=== PATIENT | female | born 1995 | race Caucasian/White ===

== ENCOUNTER 2019-07-04 14:14 | Inpatient (IN) | payer MEDICAID ==
[~2019-07-04] VITALS: Ht 170.2 cm; Wt 132.9 kg
[2019-07-04 14:18] VITALS: BP 142/81
--- NOTE | 2019-07-04 14:21 | NUR ---
PT AMBULATED TO ER BED 11
--- NOTE | 2019-07-04 14:28 | NUR ---
24 Y/O F PRESENTS TO ER C/O SHORTNESS OF BREATH AND STERNAL PAIN TO SCAR FROM PRIOR HEART SURGERY IN AUGUST 2016 THAT RADIATES TO RIGHT NECK X1 WEEK. PT REPORTS BEING FATIGUE AND DIZZY. PT RESPIRATIONS ARE EVEN AND UNLABORED. O2 SATURATION 100% ON RA. PT PAIN LEVEL 8/10. REDNESS NOTED AROUND SURGICAL SITE AND PER PT AREA IS TENDER TO TOUCH. PT AWAKE AND ALERT. HOB ELEVATED TO HIGH FOWLERS POSITION, BED IN LOWEST POSITION, BED RAIL UP X1. ERMD AT BEDSIDE. ALLERGIES: NKA MED HX: GALLBLADDER REMOVAL, HERNIA REPAIR, OPEN HEART SURGERY AUGUST 2016.
--- NOTE | 2019-07-04 14:40 | NUR ---
Pt ambulated to restroom to provide urine sample
--- NOTE | 2019-07-04 14:56 | NUR ---
Xray at bedside
--- NOTE | 2019-07-04 15:19 | NUR ---
Blood collected and given to phebessyb
[2019-07-04] MEDS ORDERED: MORPHINE SULFATE 4 MG/ML SYR IVP ONE (15:25)
[2019-07-04] MEDS ORDERED: ASPIRIN 325 MG TAB PO ONE (15:25)
[2019-07-04] MEDS ORDERED: NITROGLYCERIN 2% 1 GM PKT TP ONE (15:25)
[2019-07-04 15:31] LABS: APPEARANCE,URINE CLOUDY (CLEAR); BILIRUBIN,URINE NEGATIVE (NEGATIVE); BLOOD, URINE NEGATIVE (NEGATIVE); COLOR,URINE YELLOW (YELLOW); LEUKOCYTE ESTERASE ,URINE NEGATIVE (NEGATIVE); NITRITE, URINE NEGATIVE (NEGATIVE); PH,URINE 5.5 (5.0-9.0); UGLUCOSE NEGATIVE (NEGATIVE)
[2019-07-04 15:34] LABS: BASOPHILS # (AUTO) 0.1 K/uL (0.00-0.22); BASOPHILS % (AUTO) 0.4 % (0.0-2.0); EOSINOPHILS # (AUTO) 0.1 K/uL (0-0.4); EOSINOPHILS % (AUTO) 0.5 % (0.0-4.0); HEMATOCRIT 38.2 % (36-48); HEMOGLOBIN 12.5 g/dL (12.0-16.0); LYMPHOCYTES # (AUTO) 2.6 K/uL (2.5-16.5); LYMPHOCYTES % (AUTO) 20.6 % (20.5-51.1); MEAN CORPUSCULAR HEMOGLOBIN 26 pg (27-31); MEAN CORPUSCULAR HGB CONC 33 g/dL (33-37); MEAN CORPUSCULAR VOLUME 80.1 fL (80-94); MONOCYTES # (AUTO) 0.5 K/uL (0.8-1.0); MONOCYTES % (AUTO) 3.8 % (1.7-9.3); NEUTROPHILS # (AUTO) 9.6 K/uL (1.8-7.7); NEUTROPHILS % (AUTO) 74.7 % (42.2-75.2); PLATELET COUNT (AUTO) 333 K/uL (140-450); RED BLOOD CELL COUNT(AUTO) 4.78 MIL/uL (4.20-5.40); RED CELL DISTRIBUTION WIDTH 14.8 % (11.6-13.7); WHITE BLOOD COUNT (AUTO) 12.8 K/uL (4.8-10.8)
[2019-07-04 15:47] LABS: RBC,URINE 0-5 /HPF (0-5); WBC,URINE 0-5 /HPF (0-5)
[2019-07-04 15:53] LABS: ALBUMIN 3.6 g/dL (3.4-5.0); ANION GAP 9.3 (8-16); CARBON DIOXIDE 30.5 mmol/L (21-32); CREATININE 0.8 mg/dL (0.6-1.3); POTASSIUM 3.8 mmol/L (3.5-5.1); TOTAL BILIRUBIN 0.2 mg/dL (0.0-1.0)
[2019-07-04 16:00] LABS: CREATINE KINASE MB 0.6 ng/mL (0-3.6)
--- NOTE | 2019-07-04 17:00 | NUR ---
Pt resting in bed with family at bedside. Vital Signs Stable. Will continue to monitor.
[2019-07-04] MEDS ORDERED: ABI10 PO (17:19)
[2019-07-04] MEDS ORDERED: CARV3.122 PO (17:19)
[2019-07-04] MEDS ORDERED: ISOS20TA13 PO ×2 (17:19→21:19)
[2019-07-04] MEDS ORDERED: FURO-572 PO (17:19)
--- NOTE | 2019-07-04 17:35 | NUR ---
Pt updated on plan of care. All questions addressed.
[2019-07-04] MEDS ORDERED: NACL 0.9% 1,000 ML IV SCH (18:36)
[2019-07-04] MEDS ORDERED: LORazepam 2 MG/ML VIAL IM/IVP PRN (18:40)
[2019-07-04] MEDS ORDERED: ONDANSETRON 4 MG/2 ML VIAL IM/IVP PRN (18:40)
[2019-07-04] MEDS ORDERED: ZOLPIDEM 5 MG TAB PO PRN (18:40)
[2019-07-04] MEDS ORDERED: ACETAMINOPHEN 325 MG TAB PO PRN (18:40)
[2019-07-04] MEDS ORDERED: DOCUSATE SODIUM 100 MG GELCAP PO PRN (18:40)
--- NOTE | 2019-07-04 18:41 | NUR ---
Pt c/o 910 chest pain to right sided sternum. Does not radiate. Dr. Lord made aware.
[2019-07-04] MEDS ORDERED: NITROGLYCERIN 0.4 MG TAB SL PRN (18:45)
--- NOTE | 2019-07-04 19:01 | NUR ---
Transfer of care and report given to PETRONA Brady
--- NOTE | 2019-07-04 19:10 | NUR ---
RECEIVED REPORT FROM VICENTE RUSS.
--- NOTE | 2019-07-04 19:15 | NUR ---
PT C/O 9/10 SHARP CP ON LEFT SIDE. UNABLE TO RECEIVE MORPHINE DUE TO ORDER TIMING. GAVE NORCO. STARTED MAINTENANCE IVF 40ML/HR. WILL CONTINUE TO MONITOR.
[2019-07-04] MEDS: HYDROcodone/APAP 5/325 MG 1 TAB TAB PO PRN (19:23)
--- NOTE | 2019-07-04 19:30 | NUR ---
CALLED RESIDENT TO DISCUSS MAINTENANCE FLUIDS WITH PT'S HX OF DIASTOLIC HR. PT CURRENTLY HAS NO SIGNS OF FLUID OVERLOAD; NO PERIPHERAL EDEMA; LUNG SOUNDS CLEAR. PT DOES C/O SOB WITH THE CP AND JUST ATE MCDONALDS AT THE BEDSIDE. EDUCATED PT ON LOW SALT DIET. STOPPED IVF PER RESIDENT. RECEIVED VERBAL ORDER FROM RESIDENT TO GIVE SL NITRO TABLET FOR CP. VSS. WILL CONTINUE TO MONITOR.
[2019-07-04 19:31] LABS: MAGNESIUM 2.2 mg/dL (1.8-2.4); PHOSPHORUS 3.3 mg/dL (2.5-4.9); THYROID STIMULATING HORMONE 2.25 uIU/mL (0.34-3.74)
[2019-07-04 19:38] LABS: BARBITURATE, URINE NEGATIVE ng/ml (NEG <=200); BENZODIAZEPINE, URINE NEGATIVE ng/mL (NEG <=200); CANNABINOID, URINE NEGATIVE ng/mL (NEG <=50); COCAINE, URINE NEGATIVE ng/mL (NEG <=300); OPIATE, URINE NEGATIVE ng/mL (NEG <=2000); PHENCYCLIDINE SCREEN,URINE NEGATIVE ng/mL (NEG <=25)
[2019-07-04 19:47] LABS: PROTHROMBIN TIME 9.3 secs (10.8-13.4)
--- NOTE | 2019-07-04 20:05 | NUR ---
Dr. Pratt examining patient
--- NOTE | 2019-07-04 20:10 | NUR ---
RESIDENT IN ROOM ASSESSING PT.
--- NOTE | 2019-07-04 20:34 | NUR ---
Patient will be admitted to care of [facility]. Admited to TELEMETRY. Will go to room 119B. Belongings list completed. Report to LOLITA RUSS.
--- NOTE | 2019-07-04 20:35 | NUR ---
ADMITTED THIS 24 YEAR OLD FEMALE FROM ER PER CURT WITH CC OF SOB AND CHEST PAIN, AMBULATED TO BED WTH STEADY GAIT, ASSESSMENT DONE, VITAL SIGNS TAKEN, SBP IS NORMAL BUT DBP ON THE LOW SIDE, COMPLAINING OF CHEST PAIN 8/10 AT THIS, NO SOB NOTED, WILL MEDICATE PRN, PLAN OF CARE DISCUSSED, SAFETY MEASURES IN PLACE, CALL LIGHT WITHIN REACH.
[2019-07-04 20:40] VITALS: BP 112/48
--- NOTE | 2019-07-04 21:00 | NUR ---
PT COMPLAINING OF CHEST PAIN 12/05 AND REQUESTING FOR MORPHINE SINCE NORCO GIVEN EARLIER IN ER IS NOT RELIEVING THE PAIN, NO SOB NOTED, BP RECHECKED-114/39, HR-106, DR LOU MADE AWARE, STATED DBP IS TOO LOW TO GIVE MORPHINE, WILL ORDER TORADOL IVP AND REASSESS AFTER 30 MINUTES, AND STATED ALSO TO REMOVE NITROPASTE, WILL CARRY OUT.
[2019-07-04] MEDS ORDERED: KETOROLAC 30 MG/ML VIAL IVP SCH (21:05)
[2019-07-04] MEDS: MORPHINE SULFATE 2 MG/ML SYR IVP PRN (21:56)
--- NOTE | 2019-07-04 21:56 | NUR ---
NO RELIEF FROM TORADOL, BP RECHECKED-122/54, HR-98, DR LOU MADE AWARE, STATED OK TO GIVE MORPHINE, MORPHINE IVP ADMINISTERED, MONITORED CLOSELY.
[2019-07-04] MEDS ORDERED: cefTRIAXone 1,000 MG VIAL ONE (23:10)
[2019-07-05] VITALS: BP 117/61
--- NOTE | 2019-07-05 | NUR ---
PT SLEEPING, EASILY AROUSABLE, VITAL SIGNS STABLE, DENIES PAIN, NO SOB NOTED, IVF INFUSING WELL, CONTINUE TO MONITOR CLOSELY.
[2019-07-05] MEDS ORDERED: ISOS20TA13 PO (00:24)
[2019-07-05] MEDS: MORPHINE SULFATE 2 MG/ML SYR IVP PRN ×3 (02:15→16:37)
--- NOTE | 2019-07-05 02:15 | NUR ---
PT COMPLAINING OF CHEST PAIN, NO SOB NOTED, MEDICATED WITH MORPHINE IVP ORDERED, MONITORED CLOSELY.
[2019-07-05 04:30] VITALS: BP 112/65
--- NOTE | 2019-07-05 04:30 | NUR ---
PT AWAKE USING HER CELLPHONE, VITAL SIGNS STABLE, DENIES PAIN AT THIS TIME, NO SOB NOTED, IVF INFUSING WELL, MONITORED CLOSELY.
--- NOTE | 2019-07-05 06:00 | NUR ---
SEEN PT SLEEPING, VISIBLE CHEST RISE AND FALL, NO DISTRESS NOTED, IVF INFUSING WELL, MONITORED CLOSELY.
[2019-07-05 06:22] LABS: BASOPHILS # (AUTO) 0.1 K/uL (0.00-0.22); BASOPHILS % (AUTO) 0.8 % (0.0-2.0); EOSINOPHILS # (AUTO) 0.1 K/uL (0-0.4); EOSINOPHILS % (AUTO) 1.3 % (0.0-4.0); HEMATOCRIT 36.6 % (36-48); HEMOGLOBIN 12.1 g/dL (12.0-16.0); LYMPHOCYTES # (AUTO) 2.7 K/uL (2.5-16.5); LYMPHOCYTES % (AUTO) 33.5 % (20.5-51.1); MEAN CORPUSCULAR HEMOGLOBIN 27 pg (27-31); MEAN CORPUSCULAR HGB CONC 33 g/dL (33-37); MEAN CORPUSCULAR VOLUME 80.4 fL (80-94); MONOCYTES # (AUTO) 0.3 K/uL (0.8-1.0); NEUTROPHILS # (AUTO) 4.9 K/uL (1.8-7.7); NEUTROPHILS % (AUTO) 60.4 % (42.2-75.2); PLATELET COUNT (AUTO) 268 K/uL (140-450); RED BLOOD CELL COUNT(AUTO) 4.55 MIL/uL (4.20-5.40); RED CELL DISTRIBUTION WIDTH 14.7 % (11.6-13.7); WHITE BLOOD COUNT (AUTO) 8.1 K/uL (4.8-10.8)
[2019-07-05 06:57] LABS: ANION GAP 11.8 (8-16); CARBON DIOXIDE 26.4 mmol/L (21-32); CREATININE 0.8 mg/dL (0.6-1.3); POTASSIUM 4.2 mmol/L (3.5-5.1)
--- NOTE | 2019-07-05 07:20 | NUR ---
RECEIVED REPORT FROM COMMUNICATIONS PROJECT MANAGER NURSE. PT IS SLEEPING, NO SIGNS OF DISTRESS. PT HAS IV ON LEFT AC G20 WITH NS RUNNING AT 20 ML/HR. ON ROOM AIR. PT IS FROM HOME, FULL CODE. NKA. CALL LIGHT WITHIN PT'S REACH, BED ON LOW, SIDE RAILS UP. WILL CONTINUE TO MONITOR
--- NOTE | 2019-07-05 07:34 | NUR ---
PT SLEEPING, NO SIGNS OF DISTRESS, REPORT GIVEN TO PETRONA THURMAN FOR CONTINUITY OF CARE.
[2019-07-05 08:00] VITALS: BP 114/69
--- NOTE | 2019-07-05 08:39 | NUR ---
MORNING MEDS GIVEN. PT TOLERATED WELL. PT COMPLAINED OF PAIN. MORPHINE GIVEN IVP. WILL CONTINUE TO MONITOR
[2019-07-05] MEDS ORDERED: ARIPiprazole 10 MG TAB PO SCH (09:00)
[2019-07-05] MEDS ORDERED: ISOSORBIDE DINITRATE 20 MG TAB PO SCH (09:00)
[2019-07-05] MEDS ORDERED: ISOSORBIDE DINITRATE 10 MG TAB PO SCH (09:00)
[2019-07-05] MEDS ORDERED: CARVEDILOL 3.125 MG TAB PO SCH (09:00)
[2019-07-05] MEDS ORDERED: LISINOPRIL 5 MG TAB PO SCH (09:00)
[2019-07-05] MEDS ORDERED: LACTOBACILLUS RHAMNOSUS GG 1 EACH CAP PO SCH (09:00)
[2019-07-05] MEDS ORDERED: FUROSEMIDE 20 MG TAB PO SCH (09:00)
--- NOTE | 2019-07-05 09:00 | NUR ---
PATIENT HAS BEEN SCREENED AND CATEGORIZED MODERATE NUTRITION RISK. PATIENT WILL BE SEEN WITHIN 3-5 DAYS OF ADMISSION. 07/07/19 07/09/[address]
[2019-07-05 12:00] VITALS: BP 120/67
[2019-07-05] MEDS: HYDROcodone/APAP 5/325 MG 1 TAB TAB PO PRN (13:35)
--- NOTE | 2019-07-05 13:35 | NUR ---
PT COMPLAINED OF PAIN ON THE CHEST 10/05. NORCO GIVEN. PT TOLEARTED WELL. WILL CONTINUE TO MONITOR
[2019-07-05] MEDS ORDERED: LACT10CA1 PO ×2 (13:54→14:24)
[2019-07-05] MEDS ORDERED: LEVO750T2 PO ×2 (13:54→14:24)
[2019-07-05 16:00] VITALS: BP 121/74
--- NOTE | 2019-07-05 16:37 | NUR ---
PT COMPLAINED OF PAIN 12/05. MORPHINE GIVEN IVP. PT TOLERATED WELL.
[2019-07-05 17:45] VITALS: BP 121/74
--- NOTE | 2019-07-05 18:00 | NUR ---
DC INSTRUCTIONS GIVEN TO THE PT. PT VERBALIZED UNDERSTANDING. PT SIGNED DC PAPERS
--- NOTE | 2019-07-05 18:10 | NUR ---
REMOVED ID BANDS AND IV, IV CANNULA INTACT. TELE MONITOR REMOVED
--- NOTE | 2019-07-05 18:19 | NUR ---
PT WHEELED OUT TO THE LOBBY AND ACCOMPANIED BY FAMILY. PT IS STABLE.
== END 2019-07-05 20:24 | disposition home or self-care (01) | DRG 198 ==
LOC: MED 14:14 → MTU 17:59
PROVIDERS: ADMIT General Practice; ATTEND General Practice
DX: I20.9 Angina pectoris, unspecified (principal); I50.42 Chronic combined systolic (congestive) and diastolic (congestive) heart failure; R65.10 Systemic inflammatory response syndrome (SIRS) of non-infectious origin without acute organ dysfunction; F25.0 Schizoaffective disorder, bipolar type; Z68.42 Body mass index [BMI] 45.0-49.9, adult; M94.0 Chondrocostal junction syndrome [Tietze]; N39.0 Urinary tract infection, site not specified; E66.9 Obesity, unspecified; F12.90 Cannabis use, unspecified, uncomplicated; F43.9 Reaction to severe stress, unspecified; Z95.1 Presence of aortocoronary bypass graft; Z79.899 Other long term (current) drug therapy; Z90.49 Acquired absence of other specified parts of digestive tract; Z91.14 Patient's other noncompliance with medication regimen; Z71.51 Drug abuse counseling and surveillance of drug abuser
CPT/HCPCS: 36415; 71045; 80048; 80053; 80305; 81001; 81025; 82550; 82553; 83036; 83690; 83735; 83880; 84100; 84443; 84484; 85025; 85379; 85610; 85730; 87081; 87086; 93005; 93970; 96374; 99291; J0696; J1644; J1885; J2270; J7030; J7060; Q0092

== ENCOUNTER 2019-09-01 12:27 | Emergency (ER) | payer MEDICAID ==
[~2019-09-01] VITALS: Ht 170.2 cm; Wt 127.0 kg
[~2019-09-01 12:27] MED LIST: ABI10 PO; CARV3.122 PO; FURO-572 PO; ISOS20TA13 PO; LACT10CA1 PO; LEVO750T2 PO
--- NOTE | 2019-09-01 12:28 | NUR ---
Patient transferred to bed 4 via wheelchair by triage nurse. RN evaluating patient at bedside.
--- NOTE | 2019-09-01 12:33 | NUR ---
EKG completed at bedside by EMT.
[2019-09-01 12:34] VITALS: BP 114/63
--- NOTE | 2019-09-01 12:47 | NUR ---
24 Y/O F C/C CHEST PAIN/SOB X 1 DAY. PER PT 11/04 PAIN IN LEFT UPPER CHEST, NON RADIATING, TIGHTNESS SENSATION, MOVING MAKES IT WORSE. PT HAS NOT TAKEN OTC RX FOR PAIN RELIEF. PT PRESENT IN NO RESP DISTRESS, 98% RA, SYMMETRICAL BREATHING PATTERN, EUPNEA. PLACED ON 2L NC FOR COMFORT. PT NKA. HX CHRONIC DIASTOLIC DISEASE,GALLBLADDER/HERNIA SURGERIES. NO N/V/D. SIDE RAIL X1.
--- NOTE | 2019-09-01 13:01 | NUR ---
IZAELLIOTTFRANCIS - MOTHER PHONE : [phone] CELL
--- NOTE | 2019-09-01 13:04 | NUR ---
PT AMBULTED TO BATHROOM, STEADY GAIT.
--- NOTE | 2019-09-01 13:13 | NUR ---
DR VARELA AT BEDSIDE
[2019-09-01 13:19] LABS: BASOPHILS # (AUTO) 0.1 K/uL (0.00-0.22); BASOPHILS % (AUTO) 0.8 % (0.0-2.0); EOSINOPHILS % (AUTO) 0.2 % (0.0-4.0); HEMATOCRIT 35.9 % (36-48); HEMOGLOBIN 11.7 g/dL (12.0-16.0); LYMPHOCYTES # (AUTO) 2.3 K/uL (2.5-16.5); LYMPHOCYTES % (AUTO) 18.6 % (20.5-51.1); MEAN CORPUSCULAR HEMOGLOBIN 26 pg (27-31); MEAN CORPUSCULAR HGB CONC 33 g/dL (33-37); MEAN CORPUSCULAR VOLUME 80.4 fL (80-94); MONOCYTES # (AUTO) 0.6 K/uL (0.8-1.0); MONOCYTES % (AUTO) 4.6 % (1.7-9.3); NEUTROPHILS # (AUTO) 9.2 K/uL (1.8-7.7); NEUTROPHILS % (AUTO) 75.8 % (42.2-75.2); PLATELET COUNT (AUTO) 291 K/uL (140-450); RED BLOOD CELL COUNT(AUTO) 4.46 MIL/uL (4.20-5.40); RED CELL DISTRIBUTION WIDTH 15.8 % (11.6-13.7); WHITE BLOOD COUNT (AUTO) 12.2 K/uL (4.8-10.8)
[2019-09-01] MEDS ORDERED: NACL 0.9% 1,000 ML IV ONE (13:20)
[2019-09-01] MEDS ORDERED: ASPIRIN 81 MG TAB.CHEW PO ONE (13:20)
[2019-09-01 13:33] LABS: APPEARANCE,URINE CLOUDY (CLEAR); BILIRUBIN,URINE NEGATIVE (NEGATIVE); BLOOD, URINE NEGATIVE (NEGATIVE); COLOR,URINE YELLOW (YELLOW); LEUKOCYTE ESTERASE ,URINE NEGATIVE (NEGATIVE); NITRITE, URINE NEGATIVE (NEGATIVE); PH,URINE 6.5 (5.0-9.0); UGLUCOSE NEGATIVE (NEGATIVE)
[2019-09-01] MEDS ORDERED: MORPHINE SULFATE 4 MG/ML SYR IVP ONE (13:35)
[2019-09-01] MEDS ORDERED: ONDANSETRON 4 MG/2 ML VIAL IVP ONE (13:35)
[2019-09-01 13:50] LABS: ALBUMIN 3.1 g/dL (3.4-5.0); ANION GAP 12.4 (8-16); CARBON DIOXIDE 24.4 mmol/L (21-32); CREATININE 0.9 mg/dL (0.6-1.3); POTASSIUM 3.8 mmol/L (3.5-5.1); TOTAL BILIRUBIN 0.3 mg/dL (0.0-1.0)
[2019-09-01 14:01] LABS: FREE T4 (FREE THYROXINE) 0.97 ng/dL (0.76-1.46); MAGNESIUM 1.8 mg/dL (1.8-2.4); THYROID STIMULATING HORMONE 2.52 uIU/mL (0.34-3.74)
[2019-09-01 14:03] LABS: PROTHROMBIN TIME 9.3 secs (10.8-13.4)
--- NOTE | 2019-09-01 14:04 | NUR ---
PT RESTING IN BED, SIDE RAIL X1
--- NOTE | 2019-09-01 14:31 | NUR ---
PT RESTING IN BED COMFORTABLY. PT STATES CHEST PAIN 3/10 "CAN'T REALLY FEEL IT NOW." WILL CONTINUE TO MONITOR.
[2019-09-01 15:28] VITALS: BP 104/44
== END 2019-09-01 15:25 | disposition home or self-care (01) ==
LOC: MED 12:27
DX: R07.89 Other chest pain (principal); I50.9 Heart failure, unspecified; Z79.899 Other long term (current) drug therapy
CPT/HCPCS: 36415; 71045; 80053; 81003; 83735; 83880; 84439; 84443; 84484; 85025; 85610; 93005; 96374; 96375; 99285; J2270; J2405; J7030; Q0092

== ENCOUNTER 2019-11-16 14:21 | Emergency (ER) | payer MEDICAID ==
[~2019-11-16] VITALS: Ht 170.2 cm; Wt 130.6 kg
[2019-11-16 14:34] VITALS: BP 129/77
--- NOTE | 2019-11-16 14:37 | NUR ---
COVID SWAB DONE.
--- NOTE | 2019-11-16 14:40 | NUR ---
BIB SELF c/o cough, nausea, diarrhea x 4 days. her friend had covid tested positive. med hx: CHF. DENIES N/V/D; SKIN IS PINK/WARM/DRY; AAOX4 WITH EVEN AND STEADY GAIT; LUNGS CLEAR BL; HR EVEN AND REGULAR; PT DENIES ANY FEVER, CP, SOB AT THIS TIME; PATIENT STATES PAIN OF 0/10 AT THIS TIME.
--- NOTE | 2019-11-16 14:45 | NUR ---
ANGELIKA SHEPPARD EVALUATING PT IN TENT
[2019-11-16 15:15] VITALS: BP 129/77
--- NOTE | 2019-11-16 15:15 | NUR ---
Patient discharged with v/s stable. Written and verbal after care instructions given and explained. Patient alert, oriented and verbalized understanding of instructions. Ambulatory with steady gait. All questions addressed prior to discharge. ID band removed. Patient advised to follow up with PMD. Rx of ACETAMINOPHEN, IBUPROFEN, ROBITUSSIN, ACETAMINOPHEN given. Patient educated on indication of medication including possible reaction and side effects. Opportunity to ask questions provided and answered.
== END 2019-11-16 15:15 | disposition home or self-care (01) ==
LOC: MED 14:21
DX: B34.9 Viral infection, unspecified (principal); Z20.828 Contact with and (suspected) exposure to other viral communicable diseases; I50.9 Heart failure, unspecified; Z79.899 Other long term (current) drug therapy
CPT/HCPCS: 99283; U0003

== ENCOUNTER 2019-12-22 19:16 | Emergency (ER) | payer MEDICAID ==
[~2019-12-22] VITALS: Ht 170.2 cm; Wt 131.1 kg
[2019-12-22 19:21] VITALS: BP 130/48
--- NOTE | 2019-12-22 19:28 | NUR ---
PT TAKEN TO BED 4
--- NOTE | 2019-12-22 19:48 | NUR ---
Patient presents to the ED with c/o chest pain radiating to the abd. pt describes pain as cramping 10/10. pt reports poor PO intake x3wks due to nausea. pt denies vomiting or diarrhea. pt reports some dysuria. Patient on room air. no SOB or s/s of distress at this time. VSS within normal limits. Made MD aware of patient's status
--- NOTE | 2019-12-22 19:50 | NUR ---
Dr. Wei examining patient.
[2019-12-22] MEDS ORDERED: ALUMINUM HYD/MAG/SIMETHICONE 30 ML UDC PO ONE (20:00)
[2019-12-22] MEDS ORDERED: ONDANSETRON 4 MG/2 ML VIAL IVP ONE (20:00)
[2019-12-22] MEDS ORDERED: ACETAMINOPHEN EXTRA STRENGTH 500 MG TAB PO ONE (20:00)
[2019-12-22] MEDS ORDERED: KETOROLAC 15 MG/ML VIAL IVP ONE (20:00)
[2019-12-22 20:27] LABS: BASOPHILS # (AUTO) 0.1 K/uL (0.00-0.22); BASOPHILS % (AUTO) 0.5 % (0.0-2.0); EOSINOPHILS % (AUTO) 0.4 % (0.0-4.0); HEMATOCRIT 36.6 % (36-48); HEMOGLOBIN 12.1 g/dL (12.0-16.0); LYMPHOCYTES # (AUTO) 2.7 K/uL (2.5-16.5); LYMPHOCYTES % (AUTO) 23.7 % (20.5-51.1); MEAN CORPUSCULAR HEMOGLOBIN 27 pg (27-31); MEAN CORPUSCULAR HGB CONC 33 g/dL (33-37); MEAN CORPUSCULAR VOLUME 81.3 fL (80-94); MONOCYTES # (AUTO) 0.5 K/uL (0.8-1.0); MONOCYTES % (AUTO) 4.7 % (1.7-9.3); NEUTROPHILS # (AUTO) 8.1 K/uL (1.8-7.7); NEUTROPHILS % (AUTO) 70.7 % (42.2-75.2); PLATELET COUNT (AUTO) 277 K/uL (140-450); RED CELL DISTRIBUTION WIDTH 14.5 % (11.6-13.7); WHITE BLOOD COUNT (AUTO) 11.4 K/uL (4.8-10.8)
--- NOTE | 2019-12-22 20:32 | NUR ---
X-Ray at bedside.
[2019-12-22 20:47] LABS: ALBUMIN 3.2 g/dL (3.4-5.0); ANION GAP 15.8 (8-16); CARBON DIOXIDE 23.8 mmol/L (21-32); CREATININE 0.9 mg/dL (0.6-1.3); POTASSIUM 3.6 mmol/L (3.5-5.1); TOTAL BILIRUBIN 0.3 mg/dL (0.0-1.0)
[2019-12-22] MEDS ORDERED: NACL 0.9% 1,000 ML IV ONE (21:40)
[2019-12-22] MEDS ORDERED: MORPHINE SULFATE 4 MG/ML SYR IVP ONE (21:40)
[2019-12-22 22:40] VITALS: BP 107/59
--- NOTE | 2019-12-22 22:40 | NUR ---
Patient discharged with v/s stable. Written and verbal after care instructions given and explained. Patient alert, oriented and verbalized understanding of instructions. Ambulatory with steady gait. All questions addressed prior to discharge. ID band removed. Patient advised to follow up with PMD. Rx of Zofran ODT given. Patient educated on indication of medication including possible reaction and side effects. Opportunity to ask questions provided and answered.
--- NOTE | 2019-12-23 08:27 | NUR ---
LATE ENTRY- Normal saline 0.9% IV fluids discontinued at 2240.
== END 2019-12-22 22:40 | disposition home or self-care (01) ==
LOC: MED 19:16
DX: R07.9 Chest pain, unspecified (principal); K29.70 Gastritis, unspecified, without bleeding
CPT/HCPCS: 36415; 71045; 80053; 83690; 83880; 84484; 85025; 93005; 96361; 96374; 96375; 99285; J1885; J2270; J2405; J7030; Q0092

== ENCOUNTER 2020-08-06 13:01 | Emergency (ER) | payer MEDICAID ==
[~2020-08-06] VITALS: Ht 170.2 cm; Wt 111.6 kg
[2020-08-06 13:10] VITALS: BP 136/87
--- NOTE | 2020-08-06 13:12 | NUR ---
Patient ambultaed to bed 06 with steady/even gait.
--- NOTE | 2020-08-06 13:15 | NUR ---
25 y/o F coming in from home with c/c c/o dizziness, feels like heart racing, palipations after double dosing on her medications. Patient states she did not remember whether she took her pain medication, and at 0800 took her medications. Patient states she went to [employer] at 1000 and began experiencing dizziness. Pt states dizziness, nausea, double vision, and chest pressure at this time. Patient states she took Wellbutrin 300mg, Yampa 5mg-325mg, Hydroxyzine x3. Describes chest pain as 9/10, "squeezing/constant" non-radiating pain. Pt denies any other medications prior to arrival. surveillance monitor in place at this time, vital signs normal. Bed locked in lowest position, side rails x 1, call light in reach. 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
--- NOTE | 2020-08-06 13:30 | NUR ---
EMT at bedside for EKG.
--- NOTE | 2020-08-06 14:30 | NUR ---
Patient resting in position of comfort. Respirations even/unlabored. sharepoint admin remains in place. Bed locked in lowest position, side rails x1, call light in reach.
--- NOTE | 2020-08-06 14:45 | NUR ---
Dr. Villasenor is evaluating patient at bedside.
[2020-08-06] MEDS ORDERED: NACL 0.9% 2,000 ML IV ONE (14:50)
[2020-08-06 15:23] LABS: BARBITURATE, URINE NEGATIVE ng/ml (NEG <=200); BENZODIAZEPINE, URINE NEGATIVE ng/mL (NEG <=200); CANNABINOID, URINE NEGATIVE ng/mL (NEG <=50); COCAINE, URINE NEGATIVE ng/mL (NEG <=300); OPIATE, URINE POSITIVE ng/mL (NEG <=2000); PHENCYCLIDINE SCREEN,URINE NEGATIVE ng/mL (NEG <=25)
--- NOTE | 2020-08-06 15:28 | NUR ---
Lab at bedside.
--- NOTE | 2020-08-06 15:40 | NUR ---
Pressure bag applied for 1st NaCl 0.9% 1000mL bolus. IVF continued at this time; patient denies any pain, swelling, warmth/coolness to IV site. monitor tech remains in place. Bed locked in lowest position, side rails x 1, call light in reach.
--- NOTE | 2020-08-06 15:45 | NUR ---
Patient resting in position of comfort. Respirations even/unlabored. field hand remains in place. Bed locked in lowest position, side rails x1, call light in reach.
[2020-08-06 15:52] LABS: BASOPHILS % (AUTO) 0.3 % (0.0-2.0); EOSINOPHILS # (AUTO) 0.1 K/uL (0-0.4); EOSINOPHILS % (AUTO) 0.4 % (0.0-4.0); HEMATOCRIT 37.8 % (36-48); HEMOGLOBIN 12.6 g/dL (12.0-16.0); LYMPHOCYTES # (AUTO) 2.8 K/uL (2.5-16.5); LYMPHOCYTES % (AUTO) 22.7 % (20.5-51.1); MEAN CORPUSCULAR HEMOGLOBIN 28 pg (27-31); MEAN CORPUSCULAR HGB CONC 33 g/dL (33-37); MEAN CORPUSCULAR VOLUME 83.4 fL (80-94); MONOCYTES # (AUTO) 0.5 K/uL (0.8-1.0); MONOCYTES % (AUTO) 4.5 % (1.7-9.3); NEUTROPHILS # (AUTO) 8.8 K/uL (1.8-7.7); NEUTROPHILS % (AUTO) 72.1 % (42.2-75.2); PLATELET COUNT (AUTO) 328 K/uL (140-450); RED BLOOD CELL COUNT(AUTO) 4.53 MIL/uL (4.20-5.40); RED CELL DISTRIBUTION WIDTH 13.6 % (11.6-13.7); WHITE BLOOD COUNT (AUTO) 12.2 K/uL (4.8-10.8)
--- NOTE | 2020-08-06 16:01 | NUR ---
2nd liter initiated with pressure infusion bag. IV site patent; pt denies any coolness, pain, infilltration.
[2020-08-06 16:11] LABS: ALBUMIN 3.6 g/dL (3.4-5.0); ANION GAP 8.2 (8-16); ASPARTATE AMINOTRANSFERASE 14 U/L (15-37); CARBON DIOXIDE 30.5 mmol/L (21-32); CHLORIDE 106 mmol/L (98-107); CREATININE 0.9 mg/dL (0.6-1.3); GFR ARICAN-AMERICAN 97 mL/min (>90); GLUCOSE 86 mg/dL (74-106); POTASSIUM 3.7 mmol/L (3.5-5.1); SODIUM SERUM 141 mmol/L (136-145); TOTAL BILIRUBIN 0.3 mg/dL (0.0-1.0); UREA NITROGEN, BLOOD 9 mg/dL (7-18)
[2020-08-06 16:12] LABS: ACETAMINOPHEN < 0.5 ug/ml (10-30); SALICYLATE < 2.8 mg/dL (2.8-20.0)
--- NOTE | 2020-08-06 16:30 | NUR ---
Patient resting in position of comfort. Respirations even/unlabored. operations leader remains in place. Bed locked in lowest position, side rails x1, call light in reach.
[2020-08-06 16:55] VITALS: BP 108/69
--- NOTE | 2020-08-06 16:55 | NUR ---
Patient discharged with v/s stable. Written and verbal after care instructions given and explained. Patient verbalized understanding. Ambulatory with steady gait. All questions addressed prior to discharge. Advised to follow up with PMD.
== END 2020-08-06 16:55 | disposition home or self-care (01) ==
LOC: MED 13:01
DX: T43.291A Poisoning by other antidepressants, accidental (unintentional), initial encounter (principal); R42 Dizziness and giddiness; Y92.89 Other specified places as the place of occurrence of the external cause; I51.9 Heart disease, unspecified
CPT/HCPCS: 36415; 80053; 80305; 81025; 85025; 93005; 96360; 99284; G0480; G0482; J7030

== ENCOUNTER 2022-04-22 20:51 | Emergency (ER) | payer MEDICAID ==
[~2022-04-22] VITALS: Ht 170.2 cm; Wt 108.9 kg
[2022-04-22 21:03] VITALS: BP 131/56
--- NOTE | 2022-04-22 21:07 | NUR ---
TO LOBBY A/W BED AMBULATORY
[2022-04-23 00:29] LABS: BASOPHILS # (AUTO) 0.1 K/uL (0.00-0.22); BASOPHILS % (AUTO) 0.6 % (0.0-2.0); EOSINOPHILS # (AUTO) 0.1 K/uL (0-0.4); EOSINOPHILS % (AUTO) 0.5 % (0.0-4.0); HEMATOCRIT 36.8 % (36-48); HEMOGLOBIN 12.7 g/dL (12.0-16.0); LYMPHOCYTES # (AUTO) 3.6 K/uL (2.5-16.5); LYMPHOCYTES % (AUTO) 33.8 % (20.5-51.1); MEAN CORPUSCULAR HEMOGLOBIN 30 pg (27-31); MEAN CORPUSCULAR HGB CONC 34 g/dL (33-37); MEAN CORPUSCULAR VOLUME 85.9 fL (80-94); MONOCYTES # (AUTO) 0.4 K/uL (0.8-1.0); MONOCYTES % (AUTO) 3.7 % (1.7-9.3); NEUTROPHILS # (AUTO) 6.6 K/uL (1.8-7.7); NEUTROPHILS % (AUTO) 61.4 % (42.2-75.2); PLATELET COUNT (AUTO) 281 K/uL (140-450); RED BLOOD CELL COUNT(AUTO) 4.29 MIL/uL (4.20-5.40); RED CELL DISTRIBUTION WIDTH 12.7 % (11.6-13.7); WHITE BLOOD COUNT (AUTO) 10.7 K/uL (4.8-10.8)
[2022-04-23 00:29] LABS: APPEARANCE,URINE CLEAR (CLEAR); BILIRUBIN,URINE NEGATIVE (NEGATIVE); BLOOD, URINE NEGATIVE (NEGATIVE); COLOR,URINE YELLOW (YELLOW); LEUKOCYTE ESTERASE ,URINE NEGATIVE (NEGATIVE); NITRITE, URINE NEGATIVE (NEGATIVE); UGLUCOSE NEGATIVE (NEGATIVE)
[2022-04-23 00:44] LABS: ALBUMIN 3.6 g/dL (3.4-5.0); ANION GAP 6.7 (8-16); CARBON DIOXIDE 29.7 mmol/L (21-32); CREATININE 0.7 mg/dL (0.6-1.3); POTASSIUM 3.4 mmol/L (3.5-5.1); TOTAL BILIRUBIN 0.2 mg/dL (0.0-1.0)
--- NOTE | 2022-04-23 01:07 | NUR ---
TO BED 8.
[2022-04-23] MEDS ORDERED: METR-435 PO (01:10)
[2022-04-23] MEDS ORDERED: NAPR-54 PO (01:11)
[2022-04-23 01:15] VITALS: BP 131/56
--- NOTE | 2022-04-23 01:15 | NUR ---
Patient discharged with v/s stable. Written and verbal after care instructions given and explained. Patient alert, oriented and verbalized understanding of instructions. Ambulatory with steady gait. All questions addressed prior to discharge. ID band removed. Patient advised to follow up with PMD. Rx of METRONIDAZOLE AND NAPROSYN given. Patient educated on indication of medication including possible reaction and side effects. Opportunity to ask questions provided and answered.
== END 2022-04-23 01:15 | disposition home or self-care (01) ==
LOC: MED 20:51
DX: N76.0 Acute vaginitis (principal); I25.10 Atherosclerotic heart disease of native coronary artery without angina pectoris; Z98.890 Other specified postprocedural states
CPT/HCPCS: 36415; 80053; 81003; 81025; 85025; 87040; 87210; 99284

== ENCOUNTER 2023-01-15 17:28 | Emergency (ER) | payer MEDICAID ==
[~2023-01-15] VITALS: Ht 170.2 cm; Wt 112.6 kg
[~2023-01-15 17:28] MED LIST changes: +AZIT500T8 PO; +METR-435 PO; +NAPR-54 PO; +ONDA-188 SL
[2023-01-15 17:47] VITALS: BP 155/57; PULSE 71; RESP 18; TEMP 98.6; O2SAT 99
[2023-01-15] MEDS ORDERED: HYDROcodone/APAP 5/325 MG 1 TAB TAB PO ONE (21:00)
[2023-01-15 21:22] LABS: BASOPHILS # (AUTO) 0.1 K/uL (0.00-0.22); BASOPHILS % (AUTO) 0.9 % (0.0-2.0); EOSINOPHILS # (AUTO) 0.1 K/uL (0-0.4); EOSINOPHILS % (AUTO) 0.6 % (0.0-4.0); HEMATOCRIT 37.5 % (36-48); HEMOGLOBIN 12.9 g/dL (12.0-16.0); LYMPHOCYTES # (AUTO) 2.6 K/uL (2.5-16.5); LYMPHOCYTES % (AUTO) 28.1 % (20.5-51.1); MEAN CORPUSCULAR HEMOGLOBIN 29 pg (27-31); MEAN CORPUSCULAR HGB CONC 34 g/dL (33-37); MEAN CORPUSCULAR VOLUME 84.2 fL (80-94); MONOCYTES # (AUTO) 0.4 K/uL (0.8-1.0); MONOCYTES % (AUTO) 4.3 % (1.7-9.3); NEUTROPHILS # (AUTO) 6.1 K/uL (1.8-7.7); NEUTROPHILS % (AUTO) 66.1 % (42.2-75.2); PLATELET COUNT (AUTO) 263 K/uL (140-450); RED BLOOD CELL COUNT(AUTO) 4.46 MIL/uL (4.20-5.40); RED CELL DISTRIBUTION WIDTH 13.3 % (11.6-13.7); WHITE BLOOD COUNT (AUTO) 9.2 K/uL (4.8-10.8)
[2023-01-15 21:43] LABS: ALBUMIN 3.4 g/dL (3.4-5.0); ANION GAP 9.6 (8-16); CALCIUM 9.6 mg/dL (8.5-10.1); CARBON DIOXIDE 27.6 mmol/L (21-32); CREATININE 0.6 mg/dL (0.6-1.3); POTASSIUM 4.2 mmol/L (3.5-5.1); TOTAL BILIRUBIN 0.5 mg/dL (0.0-1.0); TOTAL PROTEIN, SERUM 7.1 g/dL (6.4-8.2)
[2023-01-15 22:17] LABS: APPEARANCE,URINE SL CLOUDY (CLEAR); BILIRUBIN,URINE NEGATIVE (NEGATIVE); BLOOD, URINE NEGATIVE (NEGATIVE); COLOR,URINE YELLOW (YELLOW); LEUKOCYTE ESTERASE ,URINE NEGATIVE (NEGATIVE); NITRITE, URINE NEGATIVE (NEGATIVE); PH,URINE 6.5 (5.0-9.0); PROTEIN,URINE NEGATIVE (NEGATIVE); UGLUCOSE NEGATIVE (NEGATIVE); UROBILINOGEN,URINE 0.2 EU/dL (0.2 - 1)
[2023-01-15] MEDS ORDERED: cefTRIAXone 500 MG in LIDOCAINE MPF 1% 1 ML IM ONE (23:25)
[2023-01-15] MEDS ORDERED: LIDOCAINE MPF 1% 5 ML ONE (23:50)
[2023-01-15] MEDS ORDERED: cefTRIAXone 500 MG VIAL ONE (23:50)
[2023-01-16] MEDS ORDERED: METR-435 PO (01:41)
[2023-01-16] MEDS ORDERED: DOXY-690 PO (01:41)
== END 2023-01-16 02:15 | disposition home or self-care (01) ==
LOC: MED 17:28
DX: R20.2 Paresthesia of skin (principal); N76.0 Acute vaginitis; B96.89 Other specified bacterial agents as the cause of diseases classified elsewhere; J44.9 Chronic obstructive pulmonary disease, unspecified; I50.30 Unspecified diastolic (congestive) heart failure; F17.200 Nicotine dependence, unspecified, uncomplicated; Z90.49 Acquired absence of other specified parts of digestive tract; Z98.890 Other specified postprocedural states; Z79.899 Other long term (current) drug therapy; Z79.2 Long term (current) use of antibiotics; Z79.1 Long term (current) use of non-steroidal anti-inflammatories (NSAID)
CPT/HCPCS: 36415; 71045; 80053; 81003; 81025; 83880; 84484; 85025; 87210; 87491; 93005; 96372; 99285; J0696; J2001